=== PATIENT | female | born 1975 | race Caucasian/White ===

== ENCOUNTER → 2016-04-30 | Outpatient (CLI) | payer OTHER ==
[~2016-04-30] MED LIST: ALBU18002 INH; ATV5X PO; BUPR-79 PO; BUPR200T2 PO; BUTA1CAP20 PO; CHOL1TAB42 PO; CHOL20007 PO; CITA20TA9 PO; DEXL30CA5 PO; DEXL60CA4 PO; ERGO1CAP35 PO; LEVO300T2 PO; LOSA50TA54 PO; LURA40TA PO; MELA5CAP PO; METO25TA3 PO; MONT1TAB5 PO; MTR/400 PO; OXYC1CAP5 PO; PRED10TA PO; TRAMTAB5 PO; ZNTT/150 PO
[2016-04-30 18:15] LABS: BASO % 0.2 %; BASO ABS # 0.02 K/uL (0-0.2); BLOOD UREA NITROGEN 23 mg/dl (7-18); BUN/CREATININE RATIO 27.7 (10-20); CALCIUM 8.6 mg/dl (8.5-10.1); CARBON DIOXIDE 27 mmol/L (21-32); CHLORIDE 103 mmol/L (98-107); COMPLETE YES; CREATININE 0.83 mg/dl (0.60-1.20); GLUCOSE 93 mg/dl (70-99); HEMATOCRIT 37.8 % (37-47); IG% 0.2 %; LYMPH % 27.8 %; MEAN CELL VOLUME 85.1 fL (80-100); MEAN CORPUSCULAR HEMOGLOBIN 28.4 pg (25-34); MEAN CORPUSCULAR HGB CONC 33.3 g/dl (32-36); MEAN PLATELET VOLUME 9.3 fL (7.4-10.4); MONO % 8.2 %; NEUT % 62.6 %; PLATELET COUNT 385 K/uL (130-400); POTASSIUM 3.5 mmol/L (3.5-5.1); RED BLOOD COUNT 4.44 M/uL (4.2-5.4); SODIUM 139 mmol/L (136-145); WHITE BLOOD COUNT 9.35 K/uL (4.8-10.8)
[2016-04-30 18:21] LABS: ALKALINE PHOSPHATASE 103 U/L (45-117); ALT/SGPT 25 U/L (12-78); AMYLASE 45 U/L (25-115); AST/SGOT 9 U/L (15-37)
== END | disposition home or self-care (01) ==
LOC: C.LABMFLN 14:13
PROVIDERS: ATTEND Family Medicine
DX: R07.9 Chest pain, unspecified (principal)

== ENCOUNTER → 2016-05-08 | Outpatient (CLI) | payer OTHER ==
--- NOTE | 2016-05-08 11:54 | DIAGNOSTIC IMAGING REPORT ---
CHEST 2 VIEWS ROUTINE CLINICAL HISTORY: R07.9 Chest [id number] dyspnea COMPARISON STUDY: No previous studies for comparison. FINDINGS: The bones soft tissues and hemidiaphragms are normal. The cardiomediastinal silhouette is normal. The lungs are clear. The pulmonary vasculature is normal. IMPRESSION: Negative chest. Electronically signed by: Marcelo Phipps M.D. 05/08/2016 11:53 AM Dictated Date/Time: 05/08/2016 11:52 AM
--- NOTE | 2016-05-08 15:21 | EXERCISE STRESS ECHO ---
*NOTICE TO RECEIVING DEMOCRAT AGENCY This information is strictly Confidential and protected under [place] law. [place] law prohibits you from making any further disclosure of this information unless further disclosure is expressly permitted by the written consent of the person to whom it pertains or is authorized by law. A general authorization for the release of medical or other information is not sufficient for this purpose. Hospital accepts no responsibility if the information is made available to any other person, INCLUDING THE PATIENT. Interpretation Summary * Name: FRACISCO TREVIÑO Study Date: 05/08/2016 12:00 PM BP: 162/84 mmHg * Patient Location: [facility] HR: 63 * : 1975 (M/d/yyyy) Gender: Female Height: 68 in * Age: 40 yrs Ethnicity: [place] Weight: 290 lb * Ordering Physician: Nirmala Brewster * Referring Physician: Nirmala Brewster * Performed By: Ana Luisa Gaona * * Reason For Study: CHEST PAIN * BSA: 2.4 m2 * -- Conclusions -- * Stress Echo: * 1. Negative stress echo for ischemia at 86% MPHR. * 2. Negative exercise ECG for ischemia at 86% MPHR. * 3. Significantly hypertensive response to exercise. Peak blood pressure was 251/64 mmHg. * 4. No chest pain reported. * 5. No arrhythmia. * 6. Below average exercise tolerance. * 7. Technically difficult study, enhanced with IV Definity. * Echo: * 1. Top-normal left ventricular size with normal systolic function. EF 60-65%. No regional wall motion abnormalities. No left ventricular hypertrophy. * 2. No significant valvular abnormalities visualized. * 3. Technically difficult study. Procedure Details * ECHOEX, CPT #[id number] * ECHO DOPPLER, CPT #[id number] * ECHO COLOR FLOW, CPT #[id number] * A contrast injection of Definity was performed to improve assessment of LV function. * Contrast was injected into an intravenous site in the left arm. * One vial of Definity ultrasound contrast was diluted in normal saline to a total volume of 10 ml. A total of '4' ml of solution was administered during imaging. * Lot # [id number] of Definity utilized for procedure. * Expiration date 03/24. * The attending nurse who injected the contrast agent was ED BARAJAS RN. Left Ventricle * Top-normal left ventricular size with normal systolic function. EF 60-65%. No regional wall motion abnormalities. No left ventricular hypertrophy. * Left ventricular systolic function is normal. * The left ventricular ejection fraction increases normally with stress. The left ventricular end-systolic cavity size reduces post-stress (normal response). The left ventricular wall motion with stress is normal. * Resting wall motion: Normal. Stress wall motion: Appropriate increase in Left ventricular systolic function and decrease in cavity size. No stress induced segmental wall motion abnormalities. Right Ventricle * The right ventricle is normal in size and function. * The right ventricular systolic function is normal as assessed by tricuspid annular plane systolic excursion (TAPSE) (normal >1.5 cm). Atria * Borderline left atrial enlargement. * The right atrium is borderline dilated. * There is no evidence of atrial septal defect, but resolution does not allow assessment for a patent foramen ovale. Mitral Valve * The mitral valve leaflets appear normal. There is no evidence of stenosis, fluttering, or prolapse. * There is no mitral regurgitation noted. Tricuspid Valve * The tricuspid valve is not well visualized, but is grossly normal. * There is no tricuspid stenosis. * Significant tricuspid regurgitation is absent. Aortic Valve * The aortic valve is normal in structure and function. * The aortic valve is trileaflet. * No hemodynamically significant valvular aortic stenosis. * No aortic regurgitation is present. Pulmonic Valve * The pulmonary valve is inadequately visualized, but the Doppler data is adequate for interpretation. * Trace pulmonic valvular regurgitation. Great Vessels * The aortic root is normal size. * Ascending aorta of normal dimension * Aortic arch of normal dimension. * IVC appears mildly dilated. Pericardium * There is no pericardial effusion. Stress Parameters * NSR at 63 bpm. * Stress ECG: No ST changes. No arrhythmias. * No arrhythmia were noted with stress. * Rest heart rate was '63' BPM. * Rest blood pressure was '162/84' * Maximum heart rate achieved was 157 bpm. * Maximum heart rate was 86 % of maximum age-predicted heart rate. * Maximum blood pressure was '251/64' * Total exercise time was '5:45' * Maximum exercise MET level achieved was '7.20' METS * Maximum treadmill speed was '2.50' miles per hour. * Maximum treadmill elevation was '12.00'% grade. * Exercise was terminated due to 'hypertension' * No symptoms during exercise. * The patient exhibited a hypotensive response with stress. Left Ventricular Diastolic Function * Diastolic dysfunction, Grade II (pseudonormalization pattern). MMode 2D Measurements and Calculations IVSd 10 cm IVSs 1.7 cm LVIDd 5.1 cm LVIDs 3.2 cm LVPWd 1.1 cm LVPWs 1.7 cm IVS/LVPW 0.91 FS 38.2 % EDV(Teich) 123.9 ml ESV(Teich) 39.5 ml EF(Teich) 68.1 % EDV(cubed) 132.8 ml ESV(cubed) 31.4 ml EF(cubed) 76.4 % % IVS thick 73.3 % % LVPW thick 56.3 % LV mass(C)d 199.8 grams LV mass(C)dI 83.5 grams/m\S\2 LV mass(C)s 212.8 grams LV mass(C)sI 88.9 grams/m\S\2 CO(Teich) 5.7 l/min CI(Teich) 2.4 l/min/m\S\2 SV(Teich) 84.4 ml SI(Teich) 35.3 ml/m\S\2 CO(cubed) 6.9 l/min CI(cubed) 2.9 l/min/m\S\2 SV(cubed) 101.4 ml SI(cubed) 42.4 ml/m\S\2 Ao root diam 3.4 cm Ao root area 9.0 cm\S\2 ACS 1.5 cm LA dimension 4.3 cm asc Aorta Diam 2.8 cm LA/Ao 1.3 LVOT diam 2.1 cm LVOT area 3.5 cm\S\2 LVAd ap4 35.8 cm\S\2 LVLd ap4 8.7 cm EDV(MOD-sp4) 124.0 ml LVAs ap4 18.7 cm\S\2 LVLs ap4 6.7 cm ESV(MOD-sp4) 44.0 ml EF(MOD-sp4) 64.5 % LVAd ap2 33.2 cm\S\2 LVLd ap2 8.5 cm EDV(MOD-sp2) 112.0 ml LVAs ap2 16.6 cm\S\2 LVLs ap2 6.1 cm ESV(MOD-sp2) 40.1 ml EF(MOD-sp2) 64.2 % CO(MOD-sp4) 5.4 l/min CI(MOD-sp4) 2.3 l/min/m\S\2 SV(MOD-sp4) 80.0 ml SI(MOD-sp4) 33.4 ml/m\S\2 CO(MOD-sp2) 4.9 l/min CI(MOD-sp2) 2.0 l/min/m\S\2 SV(MOD-sp2) 71.9 ml SI(MOD-sp2) 30.0 ml/m\S\2 Doppler Measurements and Calculations MV E max mary 108.7 cm/sec MV A max mary 95.1 cm/sec MV E/A 1.1 MV dec time 0.25 sec Ao V2 max 150.3 cm/sec Ao max PG 9.0 mmHg Ao max PG (full) 5.3 mmHg SOHAN(V,A) 2.3 cm\S\2 SOHAN(V,D) 2.3 cm\S\2 LV V1 max PG 3.7 mmHg LV V1 mean PG 2.0 mmHg LV V1 max 96.6 cm/sec LV V1 mean 66.2 cm/sec LV V1 VTI 23.1 cm SV(LVOT) 81.0 ml SI(LVOT) 33.9 ml/m\S\2 TV E max mary 54.0 cm/sec PA V2 max 83.9 cm/sec PA max PG 2.8 mmHg PI end-d mary 127.0 cm/sec RAP systole 8.0 mmHg
== END | disposition home or self-care (01) ==
LOC: C.CPL 11:23
PROVIDERS: ATTEND Family Medicine
DX: R07.9 Chest pain, unspecified (principal)

== ENCOUNTER → 2016-07-12 | Outpatient (CLI) | payer OTHER ==
[2016-07-12 14:17] LABS: BLOOD UREA NITROGEN 11 mg/dl (7-18); BUN/CREATININE RATIO 17.1 (10-20); CALCIUM 8.9 mg/dl (8.5-10.1); CARBON DIOXIDE 29 mmol/L (21-32); CHLORIDE 106 mmol/L (98-107); CREATININE 0.65 mg/dl (0.60-1.20); GLUCOSE 91 mg/dl (70-99); POTASSIUM 4.2 mmol/L (3.5-5.1); SODIUM 141 mmol/L (136-145)
== END | disposition home or self-care (01) ==
LOC: C.LABMFLN 08:27
PROVIDERS: ATTEND Physician Assistant
DX: I10 Essential (primary) hypertension (principal)

== ENCOUNTER → 2016-08-29 | Outpatient (CLI) | payer OTHER ==
[2016-08-29 13:26] LABS: PREG INTERNAL NEGATIVE QC NEG CLEAR BACKGROUND; PREG INTERNAL POSITIVE QC POS CONTROL LINE
== END | disposition home or self-care (01) ==
LOC: C.LAB1850 11:38
PROVIDERS: ATTEND Physician Assistant
DX: N93.9 Abnormal uterine and vaginal bleeding, unspecified (principal)

== ENCOUNTER → 2016-08-29 | Outpatient (CLI) | payer OTHER | END | disposition home or self-care (01) | LOC: C.PAPS 08:44 | PROVIDERS: ATTEND Physician Assistant | DX: Z12.4 Encounter for screening for malignant neoplasm of cervix (principal) ==

== ENCOUNTER → 2016-10-18 | Outpatient (CLI) | payer OTHER | END | disposition home or self-care (01) | LOC: C.PATHSPEC 17:43 | PROVIDERS: ATTEND Family Medicine | DX: N93.9 Abnormal uterine and vaginal bleeding, unspecified (principal); N85.00 Endometrial hyperplasia, unspecified ==

== ENCOUNTER 2017-01-04 07:30 | Observation (INO) | payer OTHER ==
[2016-12-28 11:44] VITALS: BMI 45.0
--- NOTE | 2016-12-28 12:08 | PAT Medication Instructions ---
Service Date Dec 28, 2016. Current Home Medication List Albuterol Sulfate (Proair Respiclick), 2 PUFF INH Q4 PRN for SOB/Wheezing Bupropion (Wellbutrin Sr), 200 MG PO BID Qcfbtlgihh-Rnzcrbwgoirbs-Fqhdt (Butalbital/APAP/Caffeine 50-300-40 mg), 1 CAP PO UD PRN for Migraine Cholecalciferol (Vitamin D), 1 TAB PO MWF Cholecalciferol (Vitamin D3), 5 TAB PO t,r,sa,sun Citalopram Hydrobromide (Celexa), 40 MG PO QAM Dexlansoprazole (Dexilant), 1 CAP PO BID Levothyroxine Sodium (Synthroid), 300 MCG PO QAM Lorazepam (Lorazepam), 1 TAB PO BID PRN for Anxiety Losartan Potassium (Cozaar), 50 MG PO QAM Lurasidone Hcl (Latuda), 40 MG PO HS Melatonin (Melatonin), 10 MG PO HS Metoprolol Succinate (Toprol Xl), 25 MG PO QAM Montelukast Sodium (Montelukast Sodium), 1 TAB PO HS Prednisone (Prednisone), 0 PO UD Ranitidine (Zantac), 150 MG PO BID Tramadol/Acetaminophen (Ultracet), 1 TAB PO TID PRN for Pain Medication Instructions For Your Scheduled Surgery - Hold the following medications 24 hours prior to surgery: Losartan Potassium (Cozaar), 50 MG PO QPM - Hold the following medications the morning of surgery: Vranmfshwh-Umawfvonqduej-Uxyst (Butalbital/APAP/Caffeine 50-300-40 mg), 1 CAP PO UD PRN for Migraine Cholecalciferol (Vitamin D) - Take the following medications the morning of surgery with a sip of water OTHERWISE NOTHING TO EAT OR DRINK AFTER MIDNIGHT: Albuterol Sulfate (Proair Respiclick), 2 PUFF INH Q4 PRN for SOB/Wheezing (USE IF NEEDED; BRING TO HOSPITAL) Bupropion (Wellbutrin Sr), 200 MG PO BID Levothyroxine Sodium (Synthroid), 300 MCG PO QAM Citalopram Hydrobromide (Celexa), 40 MG PO QAM Metoprolol Succinate (Toprol Xl), 25 MG PO QAM Lorazepam (Lorazepam), 1 TAB PO BID PRN for Anxiety Ranitidine (Zantac), 150 MG PO BID Dexlansoprazole (Dexilant), 1 CAP PO BID Tramadol/Acetaminophen (Ultracet), 1 TAB PO TID PRN for Pain (may take if needed up to 4 hours prior to surgery) Prednisone (Prednisone), 0 PO UD - Take the following medications as scheduled the night before surgery: Albuterol Sulfate (Proair Respiclick), 2 PUFF INH Q4 PRN for SOB/Wheezing Bupropion (Wellbutrin Sr), 200 MG PO BID Lurasidone Hcl (Latuda), 40 MG PO HS Melatonin (Melatonin), 10 MG PO HS Montelukast Sodium (Montelukast Sodium), 1 TAB PO HS Lorazepam (Lorazepam), 1 TAB PO BID PRN for Anxiety Ranitidine (Zantac), 150 MG PO BID Dexlansoprazole (Dexilant), 1 CAP PO BID Tramadol/Acetaminophen (Ultracet), 1 TAB PO TID PRN for Pain If you have any questions please call us at [phone] or [phone] or [phone]
[2016-12-28 12:52] LABS: BASO % 0.1 %; BASO ABS # 0.01 K/uL (0-0.2); COMPLETE YES; EOS % 0.1 %; HEMATOCRIT 36.8 % (37-47); IG% 0.1 %; LYMPH % 17.6 %; LYMPH ABS # 1.18 K/uL (1.2-3.4); MEAN CELL VOLUME 85.4 fL (80-100); MEAN CORPUSCULAR HEMOGLOBIN 28.3 pg (25-34); MEAN CORPUSCULAR HGB CONC 33.2 g/dl (32-36); MEAN PLATELET VOLUME 9.3 fL (7.4-10.4); MONO % 1.6 %; NEUT % 80.5 %; PLATELET COUNT 378 K/uL (130-400); RED BLOOD COUNT 4.31 M/uL (4.2-5.4)
[2016-12-28 13:04] LABS: BUN/CREATININE RATIO 19.6 (10-20); CALCIUM 8.7 mg/dl (8.5-10.1); CREATININE 0.76 mg/dl (0.60-1.20); POTASSIUM 4.3 mmol/L (3.5-5.1)
[~2017-01-04] VITALS: Ht 172.7 cm; Wt 135.4 kg
[2017-01-04] VITALS (9 sets, daily range): BP systolic 107–149; BP diastolic 60–79; PULSE 61–80; TEMP 36.6–36.9; O2SAT 94–100; Ht 172.7 cm; Wt 135.4 kg
[~2017-01-04 07:30] MED LIST changes: -BUPR-79 PO; +CEFAZOLIN 3000 MG/65 ML D5W 50 ML IV SCH; -DEXL30CA5 PO; -ERGO1CAP35 PO; +LACTATED RINGER'S 1000ML 1,000 ML IV SCH; -MTR/400 PO; -OXYC1CAP5 PO
[2017-01-04] MEDS ORDERED: FENTANYL CITRATE INJ 50 MCG/1 ML 2 ML VIAL IV PRN (08:45)
[2017-01-04] MEDS ORDERED: ATROPINE SULFATE 0.1 MG/ML 5ML SYR IV PRN (08:45)
[2017-01-04] MEDS ORDERED: ONDANSETRON INJ 2 MG/ML 2 ML VIAL IV PRN ×2 (08:45→12:00)
[2017-01-04] MEDS ORDERED: EpHEDrine SULFATE INJ 50 MG/ML AMP IV PRN (08:45)
[2017-01-04] MEDS ORDERED: FENTANYL CITRATE INJ 50 MCG/1 ML 2 ML VIAL ONE (08:54)
[2017-01-04] MEDS ORDERED: ROCURONIUM BROMIDE 10 MG/ML 5 ML VIAL IV ONE (08:54)
[2017-01-04] MEDS ORDERED: LIDOCAINE HCL 2% 2 ML VIAL (20MG/ML) ONE (08:54)
[2017-01-04] MEDS ORDERED: PROPOFOL IV EMULSION 10 MG/ML 20 ML VIAL IV ONE (08:54)
[2017-01-04] MEDS ORDERED: MIDAZOLAM HCL 1 MG/ML 2ML VIAL ONE (08:54)
[2017-01-04] MEDS ORDERED: BUPIVACAINE 0.5 % 5 MG/1 ML MPF 30ML VIAL ONE (09:37)
[2017-01-04] MEDS ORDERED: METHYLENE BLUE 0.5% 10 ML VIAL ONE (09:37)
--- NOTE | 2017-01-04 09:44 | History & Physical Bridge Note ---
H&P Re-Evaluation Bridge Note: I have examined the patient, reviewed the History & Physical and in the interval since the performance of the History & Physical I have noted the following changes of clinical significance: No changes noted
[2017-01-04] MEDS ORDERED: KETOROLAC TROMETHAMINE 30 MG/ML VIAL ONE ×2 (11:01→12:10)
[2017-01-04] MEDS ORDERED: ONDANSETRON INJ 2 MG/ML 2 ML VIAL ONE (11:01)
[2017-01-04] MEDS ORDERED: FUROSEMIDE 10 MG/ML 10 ML VIAL ONE (11:26)
[2017-01-04] MEDS ORDERED: LACTATED RINGER'S 1000ML 1,000 ML IV SCH (11:47)
--- NOTE | 2017-01-04 11:51 | [facility] Post Operative Brief Note ---
Immediate Operative Summary Operative Date Jan 04, 2017. (Sam Sánchez MD) Pre-Operative Diagnosis Abnormal Uterine Bleeding, Menometrorrhagia (Sam Sánchez MD) Post-Operative Diagnosis Abnormal Uterine Bleeding, Menometrorrhagia (Sam Sánchez MD) Procedure(s) Performed Robot Assisted Total Laparoscopic Hysterectomy, Bilateral Salpingectomoy, Cystoscopy (Sam Sánchez MD) total laparoscopic hysterectomy, bilateral salpingectomies, cystoscopy, robotic assistance. (Medina Munoz M.D.([facility]ENE[facility] DRIER/OB)) Surgeon Dr. Munoz (Sam Sánchez MD) [facility] Surgeon(s) Dr. Lozada (Sam Sánchez MD) Estimated Blood Loss 5 cc (Sam Sánchez MD) Findings Normal uterus, fallopian tubes and ovaries. Normal bladder with normal bilateral ureteral jets (Sam Sánchez MD) cystoscopy findings include normal bladder filling and normal ureteral jets. (Medina Munoz M.D.([facility]RIER/OB)) Fluids (cc crystalloids) 1700 (Sam Sánchez MD) Specimens A: Uterus, Cervix, Bilateral Fallopian Tubes (Sam Sánchez MD) Drains [place] with 200ml of clear fluid (Sam Sánchez MD) Anesthesia General (Sam Sánchez MD) Complication(s) None (Sam Sánchez MD) Disposition PCU (Sam Sánchez MD) Recovery Room / PACU (Medina Munoz M.D.([facility]ER/OB))
[2017-01-04] MEDS ORDERED: OXYC1CAP5 PO (11:55)
[2017-01-04] MEDS ORDERED: KETOROLAC TROMETHAMINE 30 MG/ML VIAL IV. PRN (12:00)
[2017-01-04] MEDS ORDERED: IBUPROFEN 600 MG TAB PO PRN (12:00)
[2017-01-04] MEDS ORDERED: OXYCODONE HCL IR 5 MG TAB (IMMEDIATE RELEASE) PO PRN (12:00)
[2017-01-04] MEDS ORDERED: SIMETHICONE 80 MG CHEW PO PRN (12:00)
--- NOTE | 2017-01-04 12:03 | Discharge Instructions ---
Discharge Instructions Date of Service Jan 04, 2017. Admission Reason for Admission: Abnormal Uterine Bleeding Discharge Discharge Diagnosis / Problem: s/p surgery Discharge Goals Goal(s): Routine recovery after surgery Activity Recommendations Activity Limitations: as noted below . Instructions / Follow-Up Instructions / Follow-Up POST OPERATIVE: BOWEL FUNCTION/MEDICATIONS: 1. Constipation pain and discomfort are the most common complaints 5-7 days after surgery. Points 2-6 address the things that can help. 2. Chewing gum can help stimulate the gut and help improve digestion and motility. 3. Milk of Magnesia 1-2 times per day until return of bowel function. 4. Colace is a stool softener that helps. Taking this 2-3 times per day until bowel function returns to normal is highly recommended. 5. Dulcolax is a laxative that may be used if several days have passed without a bowel movement. Alternatively Miralax may be used daily instead. 6. Drink plenty of fluids as this will also reduce constipation. 7. Narcotic pain medications will be prescribed by your physician. They are safe to use and we encourage you to use them. If you are not allergic, ibuprofen will also be prescribed. Many patients will be able to transition off of the narcotic medications to ibuprofen by postoperative day 3. ACTIVITY RECOMMENDATIONS: 1. Get plenty of rest and listen to your body. If you are tired, take a nap. 2. You may shower, but do not take a tub bath until you see your doctor at the 2 week post operative visit. 3. Absolutely NO intercourse and nothing in the vagina until you are examined by your doctor at the 8 week visit. At that visit it will be determined when such activities can be resumed. This can range from 6-12 weeks after your surgery depending on healing time. 4. The main physical activity in the first week should be walking. By the second week you can slowly increase activity. There are no limits on walking up and down stairs. 5. Do not lift more than 5-10 lbs for 4 weeks. Remember the "one-handed rule", i.e. if you can lift something with only one hand it's likely okay. 6. Minimize waitress like vacuuming and exercising for 4 weeks. "Overdoing it" can lead to incisions not healing, pain and vaginal bleeding , so again, listen to your body. 7. Driving can be resumed when you feel able. Do not drive within 24 hours of taking a narcotic medication. EXPECTATIONS: 1. Vaginal spotting, bleeding and discharge are common after surgery. There may even be an odor to the discharge which is often related to sutures used in the vagina. If you experience heavy vaginal bleeding, call the office number day or night [phone]. 2. Bladder discomfort is common after surgery from the catheter. This usually resolves in 1-2 weeks. 3. By the end of the 3rd or 4th week you should be feeling much better. It may take up to 6 weeks for your energy levels to return to normal. 4. Narcotic medications have side effects such as: dizziness, headache, nausea and/or vomiting. If you suspect your pain medication is causing problems, call our office and we may be able to prescribe an alternate medication. 5. The skin incisions are often covered with a liquid bandage. This will gradually peel off over time. CALL THE OFFICE IF YOU HAVE ANY OF THE FOLLOWIN. Temperature of 101 degrees or higher. 2. Severe abdominal or pelvic pain not relieved by pain medication. 3. Persistent nausea or vomiting. 4. Increased pain with urination or difficulty urinating. 5. Bright red bleeding that soaks more than 1 pad per hour. CONTACT PHONE NUMBERS: Main Office: [phone] Surgical Nurse: [phone] extension [phone] FOLLOW-UP: Post-Operative Appointments: * Individual instructions will have been given about the timing of your first examination, but this is usually at the end of the second week home. * You will need to call the office at soon after discharge to make the appointment for your post-op check-up if it has not already been scheduled. * Additional information regarding activity, sexual intercourse and when to return to work will be given at this appointment. WE WISH YOU A SPEEDY RECOVERY! Current Hospital Diet Patient's current hospital diet: Discharge Diet Recommended Diet: Regular Diet Procedures Procedures Performed: Robot Assisted Total Laparoscopic Hysterectomy, Bilateral Salpingectomoy, Cystoscopy Pending Studies Studies pending at discharge: yes List of pending studies: pathology Medical Emergencies . Who to Call and When: Medical Emergencies: If at any time you feel your situation is an emergency, please call 911 immediately. . Non-Emergent Contact Non-Emergency issues call your: [facility] . . "Provider Documentation" section prepared by Medina Munoz. . VTE Core Measure Inpt VTE Proph given/why not?: SCD's [place] Drug Monitoring Program Search Results: patient reviewed within database, no issues identified
[2017-01-04] MEDS ORDERED: IV FLUIDS COMPLETED PRN (12:45)
--- NOTE | 2017-01-04 12:52 | Anesthesiology Progress Note ---
Anesthesia Post Op Note Date & Time Jan 04, 2017 at 12:52 Vital Signs Pain Intensity: 0 Vital Signs Past 12 Hours Date Time Temp Pulse Resp B/P (MAP) Pulse Ox O2 Delivery O2 Flow Rate FiO2 01/04/17 12:38 36.4 75 16 129/81 (98) 98 Nasal Cannula 2 01/04/17 12:28 72 15 01/04/17 12:28 72 15 98 01/04/17 12:27 134/86 01/04/17 12:23 74 14 98 01/04/17 12:23 74 14 01/04/17 12:22 144/79 01/04/17 12:22 144/79 01/04/17 12:20 74 16 97 01/04/17 12:20 73 16 01/04/17 12:20 73 16 01/04/17 12:20 74 16 97 01/04/17 12:16 148/77 01/04/17 12:16 148/77 01/04/17 12:15 71 17 01/04/17 12:15 71 17 01/04/17 12:15 71 17 98 01/04/17 12:15 71 17 98 01/04/17 12:11 138/74 01/04/17 12:11 138/74 01/04/17 12:10 73 15 99 01/04/17 12:10 73 15 01/04/17 12:10 73 15 99 01/04/17 12:10 73 15 01/04/17 12:07 140/70 01/04/17 12:07 140/70 01/04/17 12:05 36.1 80 16 140/70 (85) 92 Mask 10 01/04/17 08:01 36.6 69 18 149/79 (102) 100 Room Air Notes Mental Status: alert / awake / arousable, participated in evaluation Pt Amnestic to Procedure: Yes Nausea / Vomiting: adequately controlled Pain: adequately controlled Airway Patency, RR, SpO2: stable & adequate BP & HR: stable & adequate Hydration State: stable & adequate Anesthetic Complications: no major complications apparent
--- NOTE | 2017-01-04 13:35 | OPERATIVE REPORT ---
DATE OF OPERATION: 01/04/2017 PREOPERATIVE DIAGNOSES: 1. Abnormal uterine bleeding. 2. Menometrorrhagia. POSTOPERATIVE DIAGNOSES: Same. PROCEDURES: 1. Total laparoscopic hysterectomy. 2. Bilateral salpingectomies. 3. Cystoscopy. 4. Robotic assistance. SURGEON: Dr. Medina Munoz. BUDGET CONTROLLER: Bebo Lozada. ANESTHESIA: General. IV FLUIDS: 1700 mL. ESTIMATED BLOOD LOSS: 5 mL. URINE OUTPUT: 200 mL. FINDINGS: Uterus mobile in the pelvis. Normal tubes and ovaries bilaterally. Normal liver edge. Cystoscopy findings with normal bladder filling and normal ureteral jets. INDICATIONS: This is a 41-year-old who has completed her childbearing, but with complaint of heavy and irregular vaginal bleeding. She had a workup in the office to include a negative endometrial biopsy and ultrasound that was negative. She did want to proceed with definitive surgical therapy despite review of all of her options. Please see the history and physical for more detail. DESCRIPTION OF PROCEDURE: The patient was taken to the operating room and identified. After adequate general anesthesia was obtained, the patient was placed in the dorsolithotomy position and prepped and draped in the usual sterile fashion. A Conroy catheter was placed under sterile conditions. A weighted speculum and an anterior retractor were used to visualize the cervix, which was grasped at its anterior lip with an Allis clamp. A single interrupted suture of 0 Vicryl was placed about 3 o'clock position on the cervix. The cervix was sequentially dilated using Hegar dilators to 23. The uterus was sounded to 10 cm. The VCare uterine manipulator device was gently placed through the cervical os into the uterine cavity and a balloon was inflated. The suture material was tied down to the initial cup and then stabilizing the cup was placed to allow for uterine manipulation. At this point, all the vaginal instruments had been removed. Attention was then turned to the patient's abdomen. An infraumbilical skin incision was made with the scalpel. The Veress needle was placed intraperitoneally with an opening pressure of 6 mmHg. A CO2 pneumoperitoneum was created. A 12-mm optical trocar was placed under direct visualization into the peritoneal cavity. The patient was then placed in steep Trendelenburg. Her pneumoperitoneum was maintained. The pelvis and abdomen were inspected with the findings as noted above. Two da Jose Manuel trocar sites, left and right of the midline were created by first creating skin incisions and then placing under direct visualization da Jose Manuel trocars. Laparoscope and camera were removed. The da Jose Manuel robot was brought into the patient's bedside. The appropriate instrument arms were connected to the appropriate trocars and the camera arm was connected to the camera trocar. The camera was introduced. The monopolar jose and a fenestrated bipolar were brought into the field under direct visualization. The surgeon then went to the console. The right uterine-ovarian round ligament, fallopian tube complex was identified on the right side. The ureter was seen coursing well below the planned operative site. The fallopian tube was dissected off of the mesosalpinx. The uterine ovarian and fallopian tube complex and broad ligament attachments were further coagulated and transected. The anterior and posteriorly leaves of the broad ligament were opened up into and the bladder flap was begun from the right side across into the midline. The bladder was pushed well away from the planned operative field. The uterine artery pedicle was then skeletonized. With pressure on the VCare cup, the uterine artery pedicles were cauterized. Attention was then turned to the left fallopian tube, round ligament uterine ovarian complex. The ureter was coursing well below the planned operative field. The fallopian tube was dissected in a similar fashion. The pedicle of the uterine ovarian ligament as well as the round ligament complex was taken down in a similar fashion. The anterior and posterior broad ligament leaves were opened up into on the left side. The bladder flap was begun from the left side and met in the midline to the right. The bladder was pushed well away from the planned operative field. The uterine artery pedicle on the left side was skeletonized. With the pressure on the VCare cup, the uterine artery pedicle was coagulated. It was then transected. The cardinal ligament attachments were coagulated and then transected. The planned colpotomy site was cleared on the left side. At this point, attention was returned to the right uterine artery pedicles. They were then re-coagulated and transected. The cardinal ligament attachments were then coagulated and then transected. The colpotomy site was cleared. At this point, the colpotomy was begun. The cervix was circumferentially carved out from the upper vagina using the monopolar jose. The specimen was then brought out through the vagina. Sponge was placed in the vagina to allow for maintenance of the pneumoperitoneum. The #1 instrument arm was replaced with a large needle clark driver. Two V-Loc 90 suture was passed vaginally. The cuff was closed in the usual fashion using the suture material. The sponges were removed from the vagina and the pneumoperitoneum was maintained. The large needle clark driver was then removed and the scissors followed by a needle clark driver was brought the instrument arm #1 to cut the suture and removed the needle from the abdomen. The pelvis was then irrigated and there were no active bleeding sites. The pneumoperitoneum was released and there were no active bleeding sites. At this point, the cystoscopy was begun. Of note, the patient did have a bowel prep and was significantly dehydrated. She required additional boluses of fluid as well as a dose of IV Lasix and then the ureteral jets were seen. The bladder dome had been normal and there was no evidence of sutures. At this point, the procedure was terminated. The skin incisions at the infraumbilical site was first stitched with subcutaneous suture of 0 Vicryl followed by subcuticular stitching of all incision sites with 4-0 Vicryl. The incisions were injected with Marcaine and dressed with Dermabond. A Conroy catheter had been replaced under sterile conditions. The patient was returned to supine position. She was awoken from anesthesia and transferred to the recovery room in stable condition. All sponge, lap and needle counts were correct x2. I attest to the content of the Intraoperative Record and any orders documented therein. Any exceptions are noted below. BLANCA
[2017-01-04] MEDS ORDERED: HYDROmorphone INJ 2 MG/ML SYR/VIAL ONE (15:01)
[2017-01-04] MEDS ORDERED: PANTOprazole SOD 40 MG TAB PO STA (16:04)
--- NOTE | 2017-01-06 12:19 | Discharge Summary ---
Discharge Summary Date of Service Date of admission: 01/04/2017. Date of discharge: 01/04/2017. Discharge Summary Admission diagnoses: #1 abnormal uterine bleeding #2 menometrorrhagia Discharge diagnoses: Same Procedures: #1 total laparoscopic hysterectomy #2 bilateral salpingectomies #3 cystoscopy #4 robotic assistance Brief history and hospital course: 41-year-old who is completed her childbearing and has heavy vaginal bleeding desiring definitive surgical management. Please see her history and physical for further details. She underwent the above-stated procedures without incident with an estimated blood loss 5 cc. Her postop recovery was uncomplicated. She was discharged home on her postop day #0. She was tolerating a regular diet and voiding spontaneously without difficulty and ambulate without difficulty and and her pain was well controlled and she was stable for discharge to home. She was given appropriate pain medication prescriptions and discharge instructions. She will follow-up in 2 weeks for postoperative checkup.
== END 2017-01-04 17:13 | disposition home or self-care (01) ==
LOC: C.ACU 07:30 → C.MS4N 07:45
PROVIDERS: ADMIT Obstetrics & Gynecology; ATTEND Obstetrics & Gynecology
DX: N93.9 Abnormal uterine and vaginal bleeding, unspecified (principal); N92.1 Excessive and frequent menstruation with irregular cycle; J45.909 Unspecified asthma, uncomplicated; F32.9 Major depressive disorder, single episode, unspecified; F41.9 Anxiety disorder, unspecified; E03.9 Hypothyroidism, unspecified; G47.33 Obstructive sleep apnea (adult) (pediatric); Z98.890 Other specified postprocedural states; Z88.5 Allergy status to narcotic agent; Z68.42 Body mass index [BMI] 45.0-49.9, adult; F17.200 Nicotine dependence, unspecified, uncomplicated; Z85.850 Personal history of malignant neoplasm of thyroid; Z82.49 Family history of ischemic heart disease and other diseases of the circulatory system; Z80.3 Family history of malignant neoplasm of breast; Z81.8 Family history of other mental and behavioral disorders; Z83.79 Family history of other diseases of the digestive system; Z83.3 Family history of diabetes mellitus; Z80.49 Family history of malignant neoplasm of other genital organs
CPT/HCPCS: 58571; S2900

== ENCOUNTER → 2017-06-13 | Outpatient (CLI) | payer OTHER ==
[~2017-06-13] MED LIST changes: -CEFAZOLIN 3000 MG/65 ML D5W 50 ML IV SCH; -CHOL20007 PO; -LACTATED RINGER'S 1000ML 1,000 ML IV SCH; -METO25TA3 PO; +METO25TA4 PO; -PRED10TA PO; +RANI150T85 PO; -ZNTT/150 PO
[2017-06-13 16:04] LABS: ALBUMIN 3.3 gm/dl (3.4-5.0); ALKALINE PHOSPHATASE 79 U/L (45-117); ALT/SGPT 30 U/L (12-78); AST/SGOT 16 U/L (15-37); BLOOD UREA NITROGEN 14 mg/dl (7-18); CALCIUM 8.4 mg/dl (8.5-10.1); CARBON DIOXIDE 30 mmol/L (21-32); CHOLESTEROL 187 mg/dl (0-200); CREATININE 0.78 mg/dl (0.60-1.20); GLUCOSE 84 mg/dl (70-99); LDL CHOLESTEROL CALCULATED 108 mg/dl; POTASSIUM 3.8 mmol/L (3.5-5.1); SODIUM 140 mmol/L (136-145); TOTAL PROTEIN 6.8 gm/dl (6.4-8.2); TRANSFERRIN 315 mg/dl (200-360)
== END | disposition home or self-care (01) ==
LOC: C.LABMFLN 06:54
PROVIDERS: ATTEND Family Medicine
DX: E55.9 Vitamin D deficiency, unspecified (principal); K14.6 Glossodynia; E03.9 Hypothyroidism, unspecified; I10 Essential (primary) hypertension

== ENCOUNTER 2017-08-19 15:57 | Emergency (ER) | payer OTHER ==
[~2017-08-19] VITALS: Ht 172.7 cm; Wt 139.0 kg
[~2017-08-19 15:57] MED LIST changes: +CYAN500T PO; +FOLI1TAB8 PO; +METO-217 PO; -METO25TA4 PO
[2017-08-19 16:00] VITALS: TEMP 36.7; Ht 172.7 cm; Wt 139.0 kg
[2017-08-19] MEDS ORDERED: CHOLCAP4 PO (16:39)
[2017-08-19] MEDS ORDERED: SUCR1TAB PO (16:39)
[2017-08-19] MEDS ORDERED: MULTTAB58 PO (16:39)
[2017-08-19 16:51] LABS: HEMOGLOBIN 12.1 g/dL (12.0-16.0); MEAN CELL VOLUME 86.7 fL (80-100); MEAN CORPUSCULAR HEMOGLOBIN 28.3 pg (25-34); MEAN CORPUSCULAR HGB CONC 32.7 g/dl (32-36); MEAN PLATELET VOLUME 8.9 fL (7.4-10.4); PLATELET COUNT 380 K/uL (130-400); RED CELL DISTRIBUTION WIDTH CV 14.2 % (11.5-14.5); RED CELL DISTRIBUTION WIDTH SD 44.5 fL (36.4-46.3); WHITE BLOOD COUNT 8.53 K/uL (4.8-10.8)
[2017-08-19 17:14] LABS: ALBUMIN 3.6 gm/dl (3.4-5.0); ALT/SGPT 30 U/L (12-78); AST/SGOT 17 U/L (15-37); BLOOD UREA NITROGEN 18 mg/dl (7-18); CALCIUM 8.5 mg/dl (8.5-10.1); CARBON DIOXIDE 24 mmol/L (21-32); CREATININE 0.86 mg/dl (0.60-1.20); GLUCOSE 96 mg/dl (70-99); POTASSIUM 3.7 mmol/L (3.5-5.1); SODIUM 138 mmol/L (136-145)
[2017-08-19 17:30] LABS: ALKALINE PHOSPHATASE 82 U/L (45-117)
[2017-08-19] MEDS ORDERED: NICOTINE 21 MG/24 HR TDSY EXT STA (18:10)
[2017-08-19] MEDS ORDERED: NURSING DECISION MEDICATION ORDER ONE (18:15)
--- NOTE | 2017-08-19 20:14 | EMERGENCY ROOM VISIT NOTE ---
History Report prepared by Gavin: Britton Rowland Under the Supervision of: Dr. Gian Toussaint M.D. First contact with patient: 16:08 Chief Complaint: MENTAL HEALTH EVALUATION Stated Complaint: SUICIDAL THOUGHTS History of Present Illness The patient is a 41 year old female who presents to the Emergency Room with complaints of persistent suicidal thoughts beginning a couple weeks ago. The patient states that she has been having suicidal thoughts for the last few weeks , but notes that they have worsened today. She notes that she has a history of depression and is on medication. She reports that her suicidal thoughts were triggered by work stress. The patient states that she "does not want to be here anymore and would not be here if it wasn't for her daughter." She notes that she has had suicidal thoughts before, but has never been hospitalized for her thoughts or tried to commit suicide. She reports that she has a current suicidal plan to drive off of a parker. The patient states that she is eating and sleeping well, and does not have a fever or any other physical symptoms. She notes that she has a history of chronic back pain and hypertension, but does not have a history of cutting herself. She reports that she does not use any drugs or drink alcohol. Source of History: patient Onset: for the last few weeks Position: head Quality: other (suicidal thoughts) Timing: other (persistent) Modifying Factors (Worsening): other (work stress) Associated Symptoms: No fevers Note: The patient states that she is eating and drinking well. She denies any physical symptoms. Review of Systems See HPI for pertinent positives & negatives. A total of 10 systems reviewed and were otherwise negative. Past Medical & Surgical Medical Problems: (1) Abnormal uterine bleeding (AUB) (2) Acid reflux (3) Chronic back pain (4) Depression (5) Hypertension (6) Menorrhagia (7) Thyroid cancer Surgical Problems: (1) H/O thyroidectomy (2) H/O: hysterectomy (3) History of carpal tunnel release of both wrists (4) History of cholecystectomy Family History Cancer Diabetes mellitus Heart disease Hypertension Social History Smoking Status: Current Every Day Smoker Alcohol Use: none Drug Use: none Marital Status: Housing Status: lives with family Occupation Status: employed Current/Historical Medications Scheduled Bupropion (Wellbutrin Sr), 200 MG PO BID Cholecalciferol (Vitamin D), 1 TAB PO MWF Cholecalciferol (Maximum D3), 1 CAP PO TTH Citalopram Hydrobromide (Celexa), 40 MG PO QAM Cyanocobalamin (Vitamin B-12), 500 MCG PO DAILY Dexlansoprazole (Dexilant), 1 CAP PO BID Folic Acid (Folvite), 1 TAB PO DAILY Levothyroxine Sodium (Synthroid), 300 MCG PO QAM Losartan Potassium (Cozaar), 50 MG PO QPM Lurasidone Hcl (Latuda), 40 MG PO HS Melatonin (Melatonin), 10 MG PO HS Metoprolol Succinate (Toprol Xl), 50 MG PO DAILY Montelukast Sodium (Montelukast Sodium), 1 TAB PO HS Multiple Vitamin (Multivitamin), 1 TAB PO DAILY Sucralfate (Sucralfate), 1 GM PO BID Scheduled PRN Albuterol Sulfate (Proair Respiclick), 2 PUFF INH Q4 PRN for SOB/Wheezing Crejdfqqgh-Gunidnjrbtlhx-Feiax (Butalbital/APAP/Caffeine 50-300-40 mg), 1 CAP PO UD PRN for Migraine Lorazepam (Lorazepam), 1 TAB PO BID PRN for Anxiety Ranitidine (Zantac), 150 MG PO BID PRN for GI Upset Tramadol/Acetaminophen (Ultracet), 1 TAB PO TID PRN for Pain Allergies Coded Allergies: Morphine (Verified Allergy, Intermediate, chest pain, 08/19/17) Acetaminophen (Verified Allergy, Mild, other, 08/19/17) unknown Dichloralphenazone (Verified Allergy, Mild, other, 08/19/17) unknown Isometheptene (Verified Allergy, Mild, other, 08/19/17) unknown Topiramate (Verified Allergy, Mild, other, 08/19/17) muscles Physical Exam Vital Signs Date Time Temp Pulse Resp B/P (MAP) Pulse Ox O2 Delivery O2 Flow Rate FiO2 08/19/17 16:00 36.7 73 20 155/85 95 Room Air Physical Exam Constitutional: Vital signs reviewed. Eyes: Pupils are equal round reactive to light. Conjunctiva are noninjected. ENT: Pharynx is clear without erythema or exudate. Mucous membranes are moist. Neck supple without meningeal signs. Respiratory: Clear to auscultation bilaterally. Breath sounds are equal bilaterally. Cardiovascular: Regular rate and rhythm. No rubs or gallops. GI: Soft, nondistended and nontender. Bowel sounds are present. Musculoskeletal: No peripheral edema. No lacerations to the wrists. Integumentary: No cyanosis. Neurological: The patient is awake and alert. No focal deficits. Psychiatric: Not tearful or manic. Medical Decision & Procedures Laboratory Results 08/19/17 16:37 08/19/17 16:37 Test 08/19/17 16:37 08/19/17 17:10 Red Blood Count 4.27 M/uL (4.2-5.4) Mean Corpuscular Volume 86.7 fL (80-100) Mean Corpuscular Hemoglobin 28.3 pg (25-34) Mean Corpuscular Hemoglobin Concent 32.7 g/dl (32-36) RDW Standard Deviation 44.5 fL (36.4-46.3) RDW Coefficient of Variation 14.2 % (11.5-14.5) Mean Platelet Volume 8.9 fL (7.4-10.4) Anion Gap 8.0 mmol/L (3-11) Est Creatinine Clear Calc Drug Dose 128.9 ml/min Estimated GFR () 97.9 Estimated GFR (Non- 84.5 BUN/Creatinine Ratio 20.4 (10-20) Calcium Level 8.5 mg/dl (8.5-10.1) Total Bilirubin 0.2 mg/dl (0.2-1) Direct Bilirubin < 0.1 mg/dl (0-0.2) Aspartate Amino Transf (AST/SGOT) 17 U/L (15-37) Alanine Aminotransferase (ALT/SGPT) 30 U/L (12-78) Alkaline Phosphatase 82 U/L (45-117) Total Protein 7.0 gm/dl (6.4-8.2) Albumin 3.6 gm/dl (3.4-5.0) Thyroid Stimulating Hormone (TSH) 0.565 uIu/ml (0.300-4.500) Salicylates Level 3.2 mg/dl (2.8-20) Acetaminophen Level < 2 ug/ml (10-30) Ethyl Alcohol mg/dL < 3.0 mg/dl (0-3) Urine Color DK YELLOW Urine Appearance CLEAR (CLEAR) Urine pH 5.5 (4.5-7.5) Urine Specific [place] 1.042 (1.000-1.030) Urine Protein NEG (NEG) Urine Glucose (UA) NEG (NEG) Urine Ketones TRACE (NEG) Urine Occult Blood TRACE (NEG) Urine Nitrite NEG (NEG) Urine Bilirubin NEG (NEG) Urine Urobilinogen NEG (NEG) Urine Leukocyte Esterase NEG (NEG) Urine WBC (Auto) 1-5 /hpf (0-5) Urine RBC (Auto) >30 /hpf (0-4) Urine Hyaline Casts (Auto) 5-10 /lpf (0-5) Urine Epithelial Cells (Auto) >30 /lpf (0-5) Urine Bacteria (Auto) 2+ (NEG) Urine Test NEG (NEG) Urine Opiates Screen NEG (NEG) Urine Methadone, Qualitative NEG (NEG) Urine Barbiturates POS (NEG) Urine Phencyclidine (PCP) Level NEG (NEG) Ur Amphetamine/Methamphetamine NEG (NEG) MDMA (Ecstasy) Screen POS (NEG) Urine Benzodiazepines Screen NEG (NEG) Urine Cocaine Metabolite NEG (NEG) Urine Marijuana (THC) NEG (NEG) Laboratory results as reviewed by me. Medications Administered Medications (Trade) Dose Ordered Sig/Jennifer Route Start Time Stop Time Status Last Admin Dose Admin Nicotine (Nicoderm Cq 21MG Patch) 1 patch NOW STAT EXT 08/19/17 18:10 08/19/17 18:11 DC 08/19/17 18:16 1 PATCH ED Course 161: The patient was evaluated in room A5. A complete history and physical exam was performed. 1809: Nicotine 1 patch EXT 184: I spoke to the patient's psychiatric egg caser who noted that the patient is agreeable to coming in. 2010: Discussed the patient's case with psychiatric case management. The patient was accepted to [facility]. She will be transferred there for mental health acute care. Medical Decision This is a 41-year-old female presents for mental health evaluation. I did perform a limited focused review of portions of the patient's old chart on the electronic medical record. The patient was last seen by pain management on July 25, 2017, for back pain. I did evaluate the patient as noted above. Patient is presenting with suicidal ideation for several weeks that is worse today. She does have a plan to drive her car off of a parker. I did order and review the patient's blood work as noted in the electronic medical record. I did medically clear the patient. She was seen by the mental health egg caser. She is agreeable to voluntary admission. She was accepted by the [facility] for inpatient psychiatric care. She was transported securely. Medication Reconcilliation Current Medication List: was personally reviewed by me Blood Pressure Screening Patient's blood pressure: Elevated blood pressure Blood pressure disposition: Referred to PCP Impression Primary Impression: Suicidal ideation Additional Impression: Mood disorder Scribe Attestation The scribe's documentation has been prepared under my direct and personally reviewed by me in its entirety. I confirm that the note above accurately reflects all work, treatment, procedures, and medical decision making performed by me. Departure Information Dispostion Mental Health Acute Care Referrals Nirmala Brewster M.D. (PCP) Patient Instructions My [facility] Problem Qualifiers
[2017-08-19 22:18] VITALS: BP 143/80; PULSE 68; O2SAT 98
== END 2017-08-19 22:19 ==
LOC: C.EDB 15:58 → C.EDA 22:19
DX: R45.851 Suicidal ideations (principal); F32.9 Major depressive disorder, single episode, unspecified; I10 Essential (primary) hypertension; F17.200 Nicotine dependence, unspecified, uncomplicated; Z79.899 Other long term (current) drug therapy; Z88.6 Allergy status to analgesic agent; Z88.8 Allergy status to other drugs, medicaments and biological substances

== ENCOUNTER → 2017-11-04 | Outpatient (CLI) | payer OTHER ==
[~2017-11-04] MED LIST changes: +CHOLCAP4 PO; +MULTTAB58 PO; +SUCR1TAB PO
[2017-11-04 12:50] LABS: BASO % 0.4 %; BASO ABS # 0.03 K/uL (0-0.2); EOS % 2.4 %; EOS ABS # 0.16 K/uL (0-0.5); HEMATOCRIT 36.6 % (37-47); HEMOGLOBIN 11.9 g/dL (12.0-16.0); IG# 0.01 K/uL (0.00-0.02); LYMPH % 28.8 %; LYMPH ABS # 1.96 K/uL (1.2-3.4); MEAN CELL VOLUME 90.6 fL (80-100); MEAN CORPUSCULAR HEMOGLOBIN 29.5 pg (25-34); MEAN CORPUSCULAR HGB CONC 32.5 g/dl (32-36); MEAN PLATELET VOLUME 9.9 fL (7.4-10.4); MONO ABS # 0.41 K/uL (0.11-0.59); NEUT % 62.3 %; NEUT ABS # 4.23 K/uL (1.4-6.5); PLATELET COUNT 348 K/uL (130-400); RED CELL DISTRIBUTION WIDTH CV 13.6 % (11.5-14.5); RED CELL DISTRIBUTION WIDTH SD 45.2 fL (36.4-46.3)
[2017-11-04 13:16] LABS: ALBUMIN 3.3 gm/dl (3.4-5.0); BLOOD UREA NITROGEN 13 mg/dl (7-18); CALCIUM 8.7 mg/dl (8.5-10.1); CARBON DIOXIDE 28 mmol/L (21-32); CREATININE 0.71 mg/dl (0.60-1.20); GLUCOSE 112 mg/dl (70-99); PHOSPHORUS 3.2 mg/dl (2.5-4.9); POTASSIUM 4.1 mmol/L (3.5-5.1); SODIUM 139 mmol/L (136-145)
[2017-11-04 13:32] LABS: HEMOGLOBIN A1C 5.8 % (4.5-5.6)
== END | disposition home or self-care (01) ==
LOC: C.LABMFLN 10:44
PROVIDERS: ATTEND Family Medicine
DX: R55 Syncope and collapse (principal); Z13.1 Encounter for screening for diabetes mellitus; E16.1 Other hypoglycemia